=== PATIENT | female | born 2000 | race Caucasian/White ===

== ENCOUNTER 2023-04-05 16:47 | Emergency (ER) | payer OTHER ==
[2023-04-05 17:00] VITALS: BP 118/74; O2SAT 100
[2023-04-05 17:09] LABS: BASOPHILS % (AUTO) 0.7 %; EOSINOPHILS # (AUTO) 0.1 10^3/uL (0.0-0.7); EOSINOPHILS % (AUTO) 2.6 %; HCT - HEMATOCRIT 40.8 % (37.0-47.0); HGB - HEMOGLOBIN 13.6 g/dL (12.0-16.0); LYMPHOCYTES # (AUTO) 2.1 10^3/uL (1.5-3.5); LYMPHOCYTES % (AUTO) 39.7 %; MEAN CORPUSCULAR HEMOGLOBIN 30.6 pg (27.0-31.0); MEAN CORPUSCULAR HGB CONC 33.3 g/dL (32.0-36.0); MEAN CORPUSCULAR VOLUME 91.7 fL (81.0-99.0); MEAN PLATELET VOLUME 9.3 fL (7.9-10.8); MONOCYTES # (AUTO) 0.6 10^3/uL (0.0-1.0); MONOCYTES % (AUTO) 10.8 %; NEUTROPHILS # (AUTO) 2.5 10^3/uL (1.5-6.6); NEUTROPHILS % (AUTO) 46.2 %; PLT - PLATELET COUNT 248 10^3/uL (130-450); RED BLOOD COUNT 4.45 10^6/uL (4.20-5.40); RED CELL DISTRIBUTION WIDTH 11.4 % (12.0-15.0); WHITE BLOOD COUNT 5.4 x10^3/uL (4.8-10.8)
[2023-04-05] MEDS: ONDANSETRON ODT 4 MG TABLET TL STA (17:39)
[2023-04-05 17:40] LABS: ALBUMIN 4.9 g/dL (3.2-5.5); ALBUMIN/GLOBULIN RATIO 1.8 (1.0-2.2); BILIRUBIN,TOTAL 0.5 mg/dL (0.2-1.0); CREATININE 0.7 mg/dL (0.6-1.3); POTASSIUM 3.9 mmol/L (3.5-4.5); TOTAL PROTEIN 7.6 g/dL (6.4-8.9)
[2023-04-05 17:44] LABS: BILIRUBIN,URINE NEGATIVE (NEGATIVE); GLUCOSE, URINE (UA) NEGATIVE (NEGATIVE); KETONES,URINE (UA) NEGATIVE (NEGATIVE); LEUKOCYTE ESTERASE, URINE NEGATIVE (NEGATIVE); NITRITE,URINE NEGATIVE (NEGATIVE); OCCULT BLOOD,URINE MODERATE (NEGATIVE); PROTEIN,URINE NEGATIVE (NEGATIVE); UROBILINOGEN,URINE 0.2 (NORMAL) E.U./dL (NORMAL)
[2023-04-05 17:45] LABS: HCG UR QUAL NEGATIVE
[2023-04-05] MEDS: KETOROLAC 30 MG/ML VIAL IVP STA (17:51)
[2023-04-05] MEDS: KETOROLAC 60 MG/2 ML VIAL IM STA (17:52)
[2023-04-05 18:05] LABS: CLARITY,URINE CLEAR (CLEAR)
[2023-04-05 18:06] LABS: BACTERIA,URINE Rare /HPF (None Seen); MUCUS,URINE Few Strands; RBC,URINE 0-5 /HPF (0-5); SQUAMOUS EPITHELIAL CELL,UR FEW Squamous (<= Few); WBC,URINE 0-3 /HPF (0-5)
--- NOTE | 2023-04-05 18:15 | ED Physician Documentation ---
PD HPI FEMALE - Stated complaint Stated Complaint: /ABD PX/PRAJAPATI - Chief complaint Chief Complaint: Abd Pain - History obtained from History obtained from: Patient - Additional information Additional information: Patient is a 22-year-old female presenting for evaluation of lower abdominal cramping that has been constant today. Patient states that she started her menstrual cycle today. She also reports having an associated headache with some nausea. She states that she sometimes has these episodes during her menstrual cycle where she will get a headache, feel feverish and achy and have bad lower abdominal cramping. She states that recently she has been having these episodes more frequently during her cycle. She does have a Nexplanon in place. She has reported trying Midol, Exer strength Tylenol and ibuprofen at times for her symptoms without significant improvement. Her last dose of any of these medications that was today at 10:00. She denies dysuria, vaginal discharge, vomiting.She has checked her temperature over the past 2 days and has not had a temperature above 100. She has come to sick call at the [employer] [facility] for these episodes before but they have only told her to take Tylenol for them. Review of Systems Constitutional: denies: Fever Cardiac: denies: Chest pain / pressure Respiratory: denies: Dyspnea GI: reports: Abdominal Pain, Nausea. denies: Vomiting, Diarrhea Neurologic: reports: Headache PD PAST MEDICAL HISTORY - Past Medical History Past Medical History: No Cardiovascular: None Respiratory: None Neuro: None Endocrine/Autoimmune: None GI: None TACO MAKER: None : None HEENT: None Psych: None Musculoskeletal: None Derm: None - Past Surgical History Past Surgical History: Yes HEENT: Tonsil/Adenoidectomy - Present Medications Home Medications: Ambulatory Orders Medication Instructions Recorded Confirmed Ondansetron Odt [Zofran] 4 mg TL Q6H PRN #10 tablet 04/05/23 - Allergies Allergies/Adverse Reactions: Allergies Allergy/AdvReac Type Severity Reaction Status Date / Time No Known Drug Allergies Allergy Verified 04/05/23 16:57 - Social History Does the pt smoke?: No Smoking Status: Never smoker Does the pt drink ETOH?: Yes ETOH Use: Wine, Beer, Liquor Does the pt have substance abuse?: No - Immunizations Immunizations are current?: Yes - POLST Patient has POLST: No PD ED PE NORMAL - General General: Alert and oriented X 3, No acute distress, Well developed/nourished - HEENT HEENT: Atraumatic, PERRL, EOMI, Moist mucous membranes, Pharynx benign - Neck Neck: Supple, no meningeal sign - Cardiac Cardiac: RRR, Strong equal pulses - Respiratory Respiratory: No respiratory distress, Clear bilaterally - Abdomen Abdomen: Normal bowel sounds, Soft, Non tender, Non distended - Derm Derm: Warm and dry - Neuro Neuro: Alert and oriented X 3, No motor deficit, No sensory deficit, Normal speech Results - Vitals Vitals: Vital Signs - 24 hr 04/05/23 16:49 Temperature 36.8 C Heart Rate 67 Respiratory 17 Rate Blood Pressure 118/74 O2 Saturation 100 Oxygen O2 Source Room air - Labs Labs: Laboratory Tests 04/05/23 04/05/23 04/05/23 17:00 17:00 17:04 WBC 5.4 RBC 4.45 Hgb 13.6 Hct 40.8 MCV 91.7 MCH 30.6 MCHC 33.3 RDW 11.4 L Plt Count 248 MPV 9.3 Neut # (Auto) 2.5 Lymph # (Auto) 2.1 Pratt # (Auto) 0.6 Eos # (Auto) 0.1 Baso # (Auto) 0.0 Absolute Nucleated RBC 0.00 Nucleated RBC % 0.0 Sodium Potassium Chloride Carbon Dioxide Anion Gap BUN Creatinine Estimated GFR (MDRD) Glucose Calcium Total Bilirubin AST ALT Alkaline Phosphatase Total Protein Albumin Globulin Albumin/Globulin Ratio Lipase Urine Color YELLOW Urine Clarity CLEAR Urine pH 7.0 Ur Specific [place]on 1.020 Urine Protein NEGATIVE Urine Glucose (UA) NEGATIVE Urine Ketones NEGATIVE Urine Occult Blood MODERATE H Urine Nitrite NEGATIVE Urine Bilirubin NEGATIVE Urine Urobilinogen 0.2 (NORMAL) Ur Leukocyte Esterase NEGATIVE Urine RBC 0-5 Urine WBC 0-3 Ur Squamous Epith Cells FEW Squamous Urine Bacteria Rare Urine Mucus Few Strands Ur Microscopic Review INDICATED Urine Culture Comments NOT INDICATED Urine HCG, Qual NEGATIVE 04/05/23 17:04 WBC RBC Hgb Hct MCV MCH MCHC RDW Plt Count MPV Neut # (Auto) Lymph # (Auto) Pratt # (Auto) Eos # (Auto) Baso # (Auto) Absolute Nucleated RBC Nucleated RBC % Sodium 138 Potassium 3.9 Chloride 103 Carbon Dioxide 29 Anion Gap 6.0 BUN 13 Creatinine 0.7 Estimated GFR (MDRD) 104 Glucose 90 Calcium 10.0 Total Bilirubin 0.5 AST 15 ALT 11 Alkaline Phosphatase 51 Total Protein 7.6 Albumin 4.9 Globulin 2.7 Albumin/Globulin Ratio 1.8 Lipase 23 Urine Color Urine Clarity Urine pH Ur Specific R[place]on Urine Protein Urine Glucose (UA) Urine Ketones Urine Occult Blood Urine Nitrite Urine Bilirubin Urine Urobilinogen Ur Leukocyte Esterase Urine RBC Urine WBC Ur Squamous Epith Cells Urine Bacteria Urine Mucus Ur Microscopic Review Urine Culture Comments Urine HCG, Qual PD Medical Decision Making - ED course Complexity details: reviewed results, re-evaluated patient, d/w patient ED course: Patient is a 22-year-old female presenting for evaluation of lower abdominal cramping in the setting of starting her menstrual cycle. Patient also reports having a bit of a headache. Reports having these episodes occasionally during her menstrual cycle. She has tried kahr-[id number]-[id number] anti-inflammatories without significant improvement although the last dose was at 10:00 this morning. Normal neuroexam. Abdominal exam is benign. No tenderness elicited on exam to suggest torsion. CBC, chemistry, urinalysis and hCG were obtained and reviewed without significant findings. Patient is feeling better here after IV Toradol and Zofran. She was encouraged to have close follow-up with [facility] and also encouraged to trial a schedule of anti-inflammatories on the day prior as well as the first 2 days of her menstrual cycle to see if this helps Make her symptoms more tolerable. Patient is otherwise well-appearing here, ambulatory, tolerating bright lights in the room. She is counseled on concerning symptoms to return for. Departure - Departure Disposition: 01 Home, Self Care Clinical Impression: Pelvic cramping, Headache Condition: Stable Instructions: ED Cramping Menstrual, ED Cephalgia Unspecified Follow-Up: [facility] [Provider Group] Prescriptions: Ondansetron Odt [Zofran] 4 mg TL Q6H PRN #10 tablet PRN Reason: Nausea / Vomiting Comments: Please have close follow-up with your PCM regarding your symptoms. You may benefit from a referral to the women's health clinic. In the meanwhile I would recommend using ibuprofen scheduled 600 mg every 6 hours on the day before your period as well as the first and the second day of your menstrual cycles to see if this helps reduce the severity of your menstrual cramps. Return to the ER with any worsening. Forms: PCP List Discharge Date/Time: 04/05/23 18:24
== END 2023-04-05 18:24 | disposition home or self-care (01) ==
LOC: ED 16:47
DX: R10.2 Pelvic and perineal pain (principal); R51.9 Headache, unspecified
CPT/HCPCS: 36415; 80053; 81001; 81025; 83690; 85025; 96374; 99283; 99284; Q0162; 81003; 87086

== ENCOUNTER 2023-07-05 03:16 | Emergency (ER) | payer OTHER ==
[2023-07-05 03:33] VITALS: BP 107/72; O2SAT 99
== END 2023-07-05 04:37 | disposition left against medical advice (07) ==
LOC: ED 03:16
DX: Z53.21 Procedure and treatment not carried out due to patient leaving prior to being seen by health care provider (principal)

== ENCOUNTER 2023-07-05 13:45 | Emergency (ER) | payer OTHER ==
[2023-07-05 14:11] VITALS: BP 114/69; O2SAT 100
--- NOTE | 2023-07-05 16:02 | ED Physician Documentation ---
History of Present Illness - Stated complaint Stated Complaint: NOSE PX/SWELLING - Chief complaint Chief Complaint: Trauma Hd/Nk - History obtained from History obtained from: Patient - History of Present Illness Timing: Last night Pain level max: 8 Pain level now: 8 - Additonal information Additional information: 23 year old female states that she was walking in her room last night, when she slipped and fell striking the bridge of her nose on a chair. No LOC. No vomiting.No abd pain. no neck or back pain. LMP yesterday. Denies any possibility of . Has not taken anything for pain. States increasing pain over the nose, face and upper teeth today. Review of Systems Constitutional: denies: Fever, Chills Cardiac: denies: Chest pain / pressure, Palpitations Respiratory: denies: Cough GI: denies: Nausea, Vomiting, Diarrhea Neurologic: denies: Focal weakness, Numbness, Seizure, Confused PD PAST MEDICAL HISTORY - Past Medical History Cardiovascular: None Respiratory: None Neuro: None Endocrine/Autoimmune: None GI: None PROFESSIONAL ENGINEER: None : None HEENT: None Psych: None Musculoskeletal: None Derm: None - Past Surgical History Past Surgical History: Yes HEENT: Tonsil/Adenoidectomy - Present Medications Home Medications: Ambulatory Orders Medication Instructions Recorded Confirmed Oxycodone HCl/Acetaminophen 1 - 2 each PO Q6H PRN #10 tablet 07/05/23 [Percocet 5-325 mg Tablet] MDD 6 tabs - Allergies Allergies/Adverse Reactions: Allergies Allergy/AdvReac Type Severity Reaction Status Date / Time No Known Drug Allergies Allergy Verified 07/05/23 03:28 - Social History Does the pt smoke?: No Smoking Status: Never smoker Does the pt drink ETOH?: Yes Does the pt have substance abuse?: No - Immunizations Immunizations are current?: Yes - POLST Patient has POLST: No PD ED PE NORMAL - Vitals Vital signs reviewed: Yes - General General: Alert and oriented X 3, No acute distress - HEENT HEENT: Atraumatic (atraumatic scalp exam. ), PERRL, Moist mucous membranes, Other (TTP over the bridge of the nose. TTP over the maxillary sinuses and zygomatic arches. Swelling bridge of nose. no epistaxis. no septal hematoma.) - Neck Neck: Supple, no meningeal sign, No bony TTP - Cardiac Cardiac: RRR, No murmur - Respiratory Respiratory: Clear bilaterally - Abdomen Abdomen: Normal bowel sounds, Soft, Non tender, Non distended - Derm Derm: Warm and dry - Extremities Extremities: No deformity - Neuro Neuro: Alert and oriented X 3 - Psych Psych: Normal mood, Normal affect Results - Vitals Vitals: Vital Signs - 24 hr 07/05/23 13:50 Temperature 36.8 C Heart Rate 66 Respiratory 18 Rate Blood Pressure 114/69 O2 Saturation 100 Oxygen O2 Source Room air - Rads (name of study) ct maxillofacial Relevant Findings:: Final report received, See rad report PD Medical Decision Making - ED course Complexity details: reviewed results, re-evaluated patient, considered differential, d/w patient ED course: Patient with what appears to be a nasal contusion. CT maxillofacial did not show any significant fractures. No indication for head CT. No loss of consciousness. No seizure activity. Patient request pain medication for home. This was given. We will have her follow-up with her doctor for further care. Patient counseled regarding signs and symptoms for which I believe and urgent re-evaluation would be necessary. Patient with good understanding of and agreement to plan and is comfortable going home at this time This document was made in part using voice recognition software. While efforts are made to proofread this document, sound alike and grammatical errors may occur. Departure - Departure Disposition: 01 Home, Self Care Clinical Impression: Nasal contusion Qualifiers: Encounter type: initial encounter Qualified Code(s): S00.33XA - Contusion of nose, initial encounter Condition: Good Instructions: ED Contusion Nasal Follow-Up: your,doctor in 1 week [Other] Prescriptions: Oxycodone HCl/Acetaminophen [Percocet 5-325 mg Tablet] 1 - 2 each PO Q6H PRN #10 tablet MDD 6 tabs PRN Reason: pain Comments: Your prescriptions were sent to the [employer] [place] [facility]. Please follow[place] further [place]. There are no fractures on your CT scan today. I have included the CT read below. I am prescribing a short course of narcotic pain medication for you. These are potentially dangerous and addictive medications that should be used carefully. These medications may constipate you. Take an sves-dih-tuazalg stool softener (docusate) twice daily with plenty of water while taking these medications. If you go 24 hours without a bowel movement, take [id number] miralax, per package instructions. Do not drink or drive while taking these medications. If you received narcotic or sedating medications while in the emergency department, do not drive for 24 hours. Store this medication in a safe, secure place and out of reach of children. It is a violation of federal law to give or sell this medication to another person or to use in a manner other than prescribed. The ED will not refill narcotic prescriptions, including prescriptions lost or stolen. To dispose of unwanted medications: 1. [facility] at [address] in [place] has a medication drop box. They accept prescription medications (in pill form) Tuesday through Tuesday 9:00 a.m. to 5:00 p.m. 2. The [facility] [employer] accepts prescription medications (in pill form only) for disposal year round. Call for more information. 3. Contact the [facility] for the next [facility] sponsored prescription drug collection event. , [phone], or [phone]; PROCEDURE: Maxillofacial WO INDICATIONS: fall, head vs floor, facial pain, dental and nasal TECHNIQUE: Noncontrast 1.5 mm thick axial images acquired from the mandible through the frontal sinuses, with coronal and sagittal reformatting. For radiation dose reduction, the following was used: automated exposure control, adjustment of mA and/or kV according to patient size. COMPARISON: None. FINDINGS: Image quality: Excellent. Bones and teeth: Orbital espinal are intact. Sinus espinal show no fracture or deformity. Nasal bones and septum are intact. Visualized portions of the mandible demonstrate no fractures or subluxation. Zygomatic arches are intact. Pterygoid plates are intact. Visualized portions of the skull base and auditory canals are intact. Sinuses: Paranasal sinuses are aerated, without fluid levels, mucosal thickening, or mucoceles. Mastoid air cells are aerated. Soft tissues: No edema, masses, or fluid collections. No enlarged lymph nodes. No soft tissue lacerations or debris. Vascular: Visualized vascular structures appear normal in the absence of contrast. Bony vascular foramina and canals are intact. IMPRESSION: No displaced fracture or air-fluid level. Forms: PCP List, Activity restrictions Discharge Date/Time: 07/05/23 17:25
[2023-07-05] MEDS: IBUPROFEN 800 MG TABLET PO STA (16:07)
--- NOTE | 2023-07-05 17:04 | CT Report ---
PROCEDURE: Maxillofacial WO INDICATIONS: fall, head vs floor, facial pain, dental and nasal TECHNIQUE: Noncontrast 1.5 mm thick axial images acquired from the mandible through the frontal sinuses, with co alejo and sagittal reformatting. For radiation dose reduction, the following was used: automated ex posure control, adjustment of mA and/or kV according to patient size. COMPARISON: None. FINDINGS: Image quality: Excellent. Bones and teeth: Orbital espinal are intact. Sinus espinal show no fracture or deformity. Nasal bones and septum are intact. Visualized portions of the mandible demonstrate no fractures or subluxation. Zygomatic arches are intact. Pterygoid plates are intact. Visualized portions of the skull base an d auditory canals are intact. Sinuses: Paranasal sinuses are aerated, without fluid levels, mucosal thickening, or mucoceles. Mas toid air cells are aerated. Soft tissues: No edema, masses, or fluid collections. No enlarged lymph nodes. No soft tissue lace rations or debris. Vascular: Visualized vascular structures appear normal in the absence of contrast. Bony vascular fo ramina and canals are intact. IMPRESSION: No displaced fracture or air-fluid level. Reviewed by: Soham Springer MD on 07/05/2023 5:03 PM PDT Approved by: Soham Springer MD on 07/05/2023 5:03 PM PDT Station ID: [id number]
== END 2023-07-05 17:25 | disposition home or self-care (01) ==
LOC: ED 13:45
DX: S00.33XA Contusion of nose, initial encounter (principal); W01.190A Fall on same level from slipping, tripping and stumbling with subsequent striking against furniture, initial encounter; Y93.01 Activity, walking, marching and hiking; Y92.003 Bedroom of unspecified non-institutional (private) residence as the place of occurrence of the external cause
CPT/HCPCS: 70486; 99283; 99284; A9270